=== PATIENT | female | born 1960 | race Caucasian/White ===

== ENCOUNTER 2023-02-18 16:54 | Emergency (ER) | payer BC ==
[~2023-02-18] VITALS: Ht 167.6 cm; Wt 75.3 kg
[2023-02-18 17:53] VITALS: BP 139/81; PULSE 78; RESP 20; TEMP 98; O2SAT 98
[2023-02-18] MEDS ORDERED: NACL 0.9% 1,000 ML IV SCH (18:15)
[2023-02-18 18:52] LABS: BASOPHILS % (AUTO) 0.5 % (0.0-2.0); EOSINOPHILS # (AUTO) 0.1 K/uL (0-0.4); EOSINOPHILS % (AUTO) 1.9 % (0.0-4.0); HEMATOCRIT 39.9 % (36-48); HEMOGLOBIN 13.5 g/dL (12.0-16.0); LYMPHOCYTES # (AUTO) 2.3 K/uL (2.5-16.5); LYMPHOCYTES % (AUTO) 31.6 % (20.5-51.1); MEAN CORPUSCULAR HEMOGLOBIN 32 pg (27-31); MEAN CORPUSCULAR HGB CONC 34 g/dL (33-37); MEAN CORPUSCULAR VOLUME 93.4 fL (80-94); MONOCYTES # (AUTO) 0.5 K/uL (0.8-1.0); MONOCYTES % (AUTO) 7.1 % (1.7-9.3); NEUTROPHILS # (AUTO) 4.3 K/uL (1.8-7.7); NEUTROPHILS % (AUTO) 58.9 % (42.2-75.2); PLATELET COUNT (AUTO) 217 K/uL (140-450); RED BLOOD CELL COUNT(AUTO) 4.27 MIL/uL (4.20-5.40); RED CELL DISTRIBUTION WIDTH 12.8 % (11.6-13.7); WHITE BLOOD COUNT (AUTO) 7.2 K/uL (4.8-10.8)
[2023-02-18 18:58] LABS: APPEARANCE,URINE CLEAR (CLEAR); BILIRUBIN,URINE NEGATIVE (NEGATIVE); BLOOD, URINE TRACE-I (NEGATIVE); COLOR,URINE YELLOW (YELLOW); LEUKOCYTE ESTERASE ,URINE NEGATIVE (NEGATIVE); NITRITE, URINE NEGATIVE (NEGATIVE); PH,URINE 6.5 (5.0-9.0); PROTEIN,URINE NEGATIVE (NEGATIVE); UGLUCOSE NEGATIVE (NEGATIVE); UROBILINOGEN,URINE 0.2 EU/dL (0.2 - 1)
[2023-02-18 19:03] LABS: INR 0.96 (0.8-1.2); PARTIAL THROMBOPLASTIN TIME 25.1 secs (22-35.6); PROTHROMBIN TIME 10.1 secs (10.8-13.4)
[2023-02-18 19:06] LABS: ALBUMIN 3.8 g/dL (3.4-5.0); ANION GAP 11.1 (8-16); CALCIUM 8.4 mg/dL (8.5-10.1); CARBON DIOXIDE 26.7 mmol/L (21-32); CREATININE 0.9 mg/dL (0.6-1.3); POTASSIUM 3.8 mmol/L (3.5-5.1); TOTAL BILIRUBIN 0.3 mg/dL (0.0-1.0); TOTAL PROTEIN, SERUM 6.8 g/dL (6.4-8.2)
[2023-02-18 19:08] LABS: BACTERIA,URINE FEW /HPF (None Seen); RBC,URINE 0-5 /HPF (0-5); SQUAMOUS EPITHELIAL CELL,UR 0-3 (FEW) /LPF (0-3 (FEW)); WBC,URINE 0-5 /HPF (0-5)
[2023-02-18 19:11] LABS: LACTIC ACID 0.7 mmol/L (0.4-2.0)
[2023-02-18] MEDS ORDERED: ONDANSETRON 4 MG/2 ML VIAL IVP ONE (19:15)
[2023-02-18] MEDS ORDERED: KETOROLAC 30 MG/ML VIAL IVP ONE (19:15)
[2023-02-18 22:15] VITALS: BP 137/81; PULSE 98; RESP 16; TEMP 98; O2SAT 98
== END 2023-02-18 22:15 | disposition home or self-care (01) ==
LOC: MED 16:54
DX: K80.01 Calculus of gallbladder with acute cholecystitis with obstruction (principal); K56.7 Ileus, unspecified; K57.30 Diverticulosis of large intestine without perforation or abscess without bleeding; K76.9 Liver disease, unspecified; D25.9 Leiomyoma of uterus, unspecified; Z88.0 Allergy status to penicillin; Z91.040 Latex allergy status
CPT/HCPCS: 36415; 71045; 74176; 76705; 80053; 81001; 83605; 83690; 85025; 85610; 85730; 87040; 87086; 93005; 96361; 96374; 96375; 99285; J1885; J2405; J7030